=== PATIENT | female | born 1955 | race Caucasian/White ===

== ENCOUNTER 2017-10-23 15:26 | Emergency (ER) | payer OTHER ==
[~2017-10-23] VITALS: Ht 167.6 cm; Wt 154.2 kg
[~2017-10-23 15:26] MED LIST: ATENOLOL25 MG; COZAAR100 MG; ELIQUIS5 MG; LIPIODOL10 ML; PLAVIX75 MG; RESTORIL15 M1; SOTALOL80 MG; VISTARIL25 MG; [UNRECOGNIZED DRUG - REMARK]
[2017-10-23] MEDS ORDERED: FELODIPINE ER5 MG (15:55)
[2017-10-23] MEDS ORDERED: HYDRALAZINE HCL25 MG (15:56)
[2017-10-23] MEDS ORDERED: METOPROLOL SUCC50 MG (15:56)
== END 2017-10-23 22:13 | disposition home or self-care (01) ==
LOC: ER 15:26
DX: R07.89 Other chest pain (principal)

== ENCOUNTER 2018-12-06 13:08 | Emergency (ER) | payer OTHER ==
[~2018-12-06] VITALS: Ht 167.6 cm; Wt 154.2 kg
[~2018-12-06 13:08] MED LIST changes: +FELODIPINE ER5 MG; +HYDRALAZINE HCL25 MG; +METOPROLOL SUCC50 MG
== END 2018-12-06 17:52 | disposition home or self-care (01) ==
LOC: ER 13:08
DX: R42 Dizziness and giddiness (principal)